=== PATIENT | male | born 1930 | race Caucasian/White ===

== ENCOUNTER 2016-07-12 14:42 | Inpatient (IN) | payer OTHER ==
--- NOTE | ~2016-07-12 | CN ---
Consultation Report [facility] [address] [place]. [address] NAME: ANITHA GARAY : 30 STATUS : ADM IN PAT#: [id number] AGE: 85 ADM/REG DATE : 07/12/16 MR#: [id number] REPORT SERV DATE: 07/13/16 DICTATED BY: JULIAN HELLER DATE: 07/13/16 REPORT STATUS : Draft TRANSCRIBED BY: MODL DATE: 07/13/16 CONSULTATION DATE OF CONSULTATION: HISTORY OF PRESENT ILLNESS: An 85-year-old white male admitted to the hospital yesterday because of shortness of breath. The patient has known diagnosis of COPD, on oxygen 2 L/minute pretty much all the time. Also, has comorbid issues of obstructive sleep apnea and history of radical neck surgery for laryngeal cancer, but he has been in remission for many years. He has been short of breath for several days and had productive cough for almost a week. Went to outside facility and found to be tachycardic and tachypneic with borderline low O2 saturation on room air and sent here for further evaluation. Currently being treated for COPD exacerbation with doxycycline and IV steroids. Had to be put on BiPAP for a while, but he is much better this morning on nasal cannula. The patient has never been seen by any one of us in the office. The patient feels much better and actually would like to go home. Outpatient regimen for his inhalers includes Proventil, Symbicort 160/4.5, and ipratropium. The patient is a former smoker of around 40 years as much as one pack per day. He quit a long time ago. REVIEW OF SYSTEMS: No fevers, chills, or sweats. No nausea, vomiting, abdominal pain, or diarrhea. No leg swelling. No seizure or syncope. 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 Ribera, dyslipidemia, depression, hernia repair. ALLERGIES: SULFA. HOME MEDICATIONS: Reviewed. FAMILY HISTORY: Hypertension. SOCIAL HISTORY: Ex smoker. Former drinker. No illicit drugs. PHYSICAL EXAMINATION: VITAL SIGNS: Per nursing flow sheet. GENERAL: No acute distress. Alert. Answers full sentences without shortness of breath. ENT: Normocephalic and atraumatic. The patient with dentures. Throat clear. NECK: Trachea midline. No lymph nodes. HEART: Regular rate and rhythm. No murmurs. LUNGS: Diminished bilaterally. No wheezes. No accessory muscle use. GI: Soft, nontender, nondistended. EXTREMITIES: No edema, cyanosis, or clubbing. Consultation Report [facility] [address] [place]. [address] NAME: AINTHA GARAY : 30 STATUS : ADM IN [facility]#: [id number] AGE: 85 ADM/REG DATE : 07/12/16 MR#: [id number] REPORT SERV DATE: 07/13/16 DICTATED BY: JULIAN HELLER DATE: 07/13/16 REPORT STATUS : Draft TRANSCRIBED BY: JARRETT DATE: 07/13/16 LABORATORY DATA: Reviewed. Chest x-ray, unremarkable. ASSESSMENT AND PLAN: 1. Chronic obstructive pulmonary disease exacerbation. 2. Obstructive sleep apnea. 3. Chronic oxygen dependency. The patient is currently on doxycycline, which is reasonable. We will switch the patient from Solu-Medrol to oral prednisone. Add Spiriva. Change DuoNeb over to just albuterol alone. Check alpha-1 antitrypsin, both level and genotype. We will continue to follow. CEP/JARRETT Julian Heller DO / [id number] CC: John Hui M.D.
--- NOTE | ~2016-07-12 | DS ---
Discharge Summary [facility] [address] [place]. [address] NAME: ANITHA GARAY : 30 STATUS : DIS IN PAT#: [id number] AGE: 85 ADM/REG DATE : 07/12/16 MR#: [id number] REPORT SERV DATE: 07/13/16 DICTATED BY: TRISHA PINEDA DATE: 07/13/16 REPORT STATUS : Draft TRANSCRIBED BY: MODL DATE: 07/13/16 ADMISSION DATE: 07/12/2016 DISCHARGE DATE: PCP: SELVIN romo [place] and Dr. Maya. DISTRICT MEDICAL EXAMINER: Dr. Yanes. CONSULTING PHYSICIAN: Dr. Heller for Pulmonary. FINAL DIAGNOSES: 1. Acute on chronic hypoxic respiratory failure. 2. Chronic obstructive pulmonary disease exacerbation. 3. History of laryngeal cancer with radical neck surgery. 4. Hypertension. 5. Benign prostatic hypertrophy. 6. Obstructive sleep apnea. 7. History of cerebrovascular accident. 8. History of permanent pacemaker for bradycardia. DIAGNOSTIC EXAM: Chest x-ray showing interval placement of dual lead pacemaker device. No pneumothorax. Mild bibasilar atelectasis. HOSPITAL COURSE: Please refer to the H and P done by myself dated 07/12/2016. Briefly, this is an 85-year-old male who has obstructive sleep apnea, but does not want to use his CPAP and only uses 2 L of oxygen at night and in the day as needed. He was doing well, but has some shortness of breath for about 3-4 days and was started on some antibiotics. Today, the said that he was going to visit his [id number] and then, the patient got anxious and started having increased shortness of breath, and tachypneic. He was brought to the emergency room in [facility], was found to be in respiratory alkalosis. He was given some Lasix, nebulizers, and steroids. The patient was placed on BiPAP and sent over here. Since the patient got here, we got a repeat blood gas and it shows better findings. We kept the patient on oxygen. He refused to wear the BiPAP throughout the night and right now, the patient is breathing at 92% with a respiratory rate of 16 on room air. He wanted to get Pulmonary involved, and we got the partner of Dr. Yanes to see the patient and also believes that the patient is doing better. The patient expresses wishes to go home and has been uncooperative with the nurses, and refusing medications. Family dropped by. They said that he looks better than what he looked yesterday and back to his baseline, and it will be better for everybody if he goes home, as the patient will be noncompliant, more anxious, and things might get much worse. With this, we will be discharging the patient home with them. He will be on his same medication as he refused any changes with it. He will be on aspirin 325 mg a day, Coreg 12.5 mg twice a day, doxycycline 100 mg twice a day, Lexapro 10 mg at bedtime, gabapentin 800 mg three times a day, hydrochlorothiazide 25 mg a day, lisinopril 20 mg a day, Flomax 0.4 mg at bedtime, albuterol inhaled twice a day as needed, Symbicort 160/4.5 inhaled twice a day, Ambien 10 mg at bedtime as needed, Xanax 0.5 mg p.r.n., Atrovent inhaled p.r.n. with albuterol. The patient already has a followup with his PCP, Discharge Summary [address] [address] NAME: ANITHA GARAY : 30 STATUS : DIS IN PAT#: [id number] AGE: 85 ADM/REG DATE : 07/12/16 MR#: [id number] REPORT SERV DATE: 07/13/16 DICTATED BY: TRISHA PINEDA DATE: 07/13/16 REPORT STATUS : Draft TRANSCRIBED BY: JARRETT DATE: 07/13/[address] Maya and the [place], and Dr. Yanes scheduled at that time, 07/23/2016 and 07/24/2016. TIME SPENT: 45 minutes. GUANAKO/JARRETT Trisha Pineda M.D. / [id number] CC: Jacob Pineda M.D.
--- NOTE | ~2016-07-12 | HP ---
History And Physical [address] [place]. [address] NAME: ANITHA GARAY : 30 STATUS : ADM IN PAT#: [id number] AGE: 85 ADM/REG DATE : 07/12/16 MR#: [id number] REPORT SERV DATE: 07/12/16 DICTATED BY: TRISHA PINEDA DATE: 07/12/16 REPORT STATUS : Draft TRANSCRIBED BY: JARRETT DATE: 07/12/16 DATE OF ADMISSION: 07/12/2016 PUBLIC HEALTH DENTIST: Dr. Yanes. But the patient also says that he goes to the [facility] for his other problems. He has a PCP there too and also a urologist. This is an 85-year-old male, who comes in for shortness of breath. The patient has a history of obstructive sleep apnea, uses CPAP at night, COPD on 2 L as needed, history of radical neck surgery for laryngeal cancer which is already on remission. The patient started having some shortness of breath 3 to 4 days ago, went to the PCP and given some antibiotics. The patient did not get better and went to [facility] where he was found to be tachycardic, beating at 30 times a minute and saturating at 88% on room air. The patient was then given Solu-Medrol, nebulizers, Lasix, and placed on BiPAP. The patient was then called to us for a direct admit to [facility]. The patient had some sweats, but denies any fever or chills. He did not have any nausea and vomiting. He does have some chronic urinary problems wherein he needs to go to the bathroom as quickly as he can or else he experiences lower abdominal pain that radiates to the leg. He said that he had some little bit of diarrhea and sometimes with blood but no melena. He admits to increased cough productive of thick phlegm but no blood. No near syncopal or syncopal episode and the rest of the 14-point review of system is negative except as above. 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 He also has hypercholesterolemia, herniorrhaphy, and history of depression. ALLERGIES: HE IS ALLERGIC TO SULFA. MEDICATIONS: Include blood pressure medications; BPH medications; CPAP, nebulizers but he could not tell me the exact names. FAMILY HISTORY: There is no history of cancer or heart disease. Some high blood pressure in the family. SOCIAL HISTORY: The patient is an ex-smoker. Quit in 1996. Denies alcohol or recreational drug use. PHYSICAL EXAMINATION: GENERAL: The patient is alert and oriented x3, in mild cardiorespiratory distress. VITAL SIGNS: His vital signs include a temperature of 98.6, heart rate of 80, blood pressure of 130/60, respiratory rate of 30, and saturating at 92% on 2 L nasal cannula. NECK: He has supple neck. No JVD or carotid bruits. No lymphadenopathy. HEENT: [place] conjunctivae. Anicteric sclerae. No pharyngeal erythema. LUNGS: He has fair air entry. Some wheezing. I cannot appreciate any crackles. History And Physical [address] [address] NAME: ANITHA GARAY : 30 STATUS : ADM IN [facility]#: [id number] AGE: 85 ADM/REG DATE : 07/12/16 MR#: [id number] REPORT SERV DATE: 07/12/16 DICTATED BY: TRISHA PINEDA DATE: 07/12/16 REPORT STATUS : Draft TRANSCRIBED BY: JARRETT DATE: 07/12/16 HEART: There is regular rate and rhythm. No murmurs appreciated. ABDOMEN: Positive bowel sounds. Soft. There is mild tenderness in the left lower quadrant area. No rebound, guarding, or masses. EXTREMITIES: Fair pulses. No edema. NEUROLOGIC: Neuro exam is nonlocalizing. LABORATORIES: From [facility] reveals a white count of 12.1, H and H of 13.7 and 41.7, and platelets of 206. Sodium of 139, potassium of 4.4, chloride of 99, CO2 of 25, glucose of 109, and BUN and creatinine of 16 and 0.96. The rest of the chemistry is within acceptable limits, pH there is 7.65/22/72/24 and 97% saturation. BNP of 211. INR of 0.9. Troponin is negative. Chest x-ray shows minimal basilar atelectasis, otherwise, no active pulmonary disease. ASSESSMENT: 1. Acute on chronic hypoxic respiratory failure. 2. Chronic obstructive pulmonary disease exacerbation. 3. History of laryngeal cancer with radical neck surgery in the past. 4. Hypertension. 5. BPH. 6. Obstructive sleep apnea. 7. History of CVA. 8. History of permanent pacemaker for bradycardia. PLAN: The patient was in [place] with respiratory failure and placed on BiPAP. He was given Solu-Medrol nebulization and Lasix and transferred here. The patient feels better now compared to when he first went to the hospital. We will check another ABG, continue the steroids and nebulizer, and continue his empiric antibiotics for now. We will need to get his medication list and place the patient on it. We will ask the family to bring his CPAP. Check an EKG. Repeat a chest x-ray tomorrow. I will get pulmonary consultation as the patient kept on asking that he wants to see Dr. Yanes. This has been explained to him and discussed it with his son and daughter too and they agreed and understood the plan. GUANAKO/JARRETT Trisha Pineda M.D. / [id number] CC: Jacob Pineda M.D.
[~2016-07-12 14:42] MED LIST: ASA5GR PO; ATROVENT INH; COREG25 PO; HYDROCHLOROT12.5 MG PO; PROVHFA INH
[2016-07-12 15:14] LABS: ALLENS TEST Neg; BE (BASE EXCESS) 3.5 MEQ/L (0 +/- 2.5); CARBOXYHEMOGLOBIN 0.6 % (0-3); DEVICE NC; HCO3 (ACTUAL BICARBONATE) 26.6 MEQ/L (23-27); HEMOBLOGIN CONTENT 14.4 G/DL (14-18); INSTRUMENT SERIAL # 8083; METHEMOGLOBIN 0.1 % (0-3); O2 CONTENT 18.9 VOL% (18-24); PCO2 (CO2 TENSION) 35 MMHG (35-45); PO2 (O2 TENSION) 66 MMHG (79-93); SAMPLE Arterial; pH 7.49 (7.37-7.43)
[2016-07-12 18:02] LABS: PROCALCITONIN <0.05 ng/mL (<0.5)
[2016-07-12] MEDS ORDERED: LEXAPRO10 PO (18:26)
[2016-07-12] MEDS ORDERED: AMB10 PO (18:27)
[2016-07-12] MEDS ORDERED: X5 PO (18:27)
[2016-07-12] MEDS ORDERED: T3 PO (18:28)
[2016-07-12] MEDS ORDERED: FLOMAX4 PO (18:28)
[2016-07-12] MEDS ORDERED: HYDROCHLOROT25 MG PO (18:28)
[2016-07-12] MEDS ORDERED: ZESTRIL20 MG PO (18:29)
[2016-07-12] MEDS ORDERED: COREG12 PO (18:29)
[2016-07-12] MEDS ORDERED: [UNRECOGNIZED DRUG - OTHER] TOP (18:29)
[2016-07-12] MEDS ORDERED: MONODOX100 MG PO (18:30)
[2016-07-12] MEDS ORDERED: ASABAYER PO (18:30)
[2016-07-12] MEDS ORDERED: ALKA-SELTZER O1 EACH PO (18:30)
[2016-07-12] MEDS ORDERED: IPRATROPIUM NASAL NAS (18:31)
[2016-07-12] MEDS ORDERED: PROVHFA INH (18:32)
[2016-07-12] MEDS ORDERED: ATROVENTUD INH (18:32)
[2016-07-12] MEDS ORDERED: SYMBICORT 160/41 INH INH (18:32)
[2016-07-12] MEDS ORDERED: NEUR800 PO (18:32)
[2016-07-12] MEDS ORDERED: ALBUTEROL5 INH (18:33)
[2016-07-12 19:01] LABS: ASCORBIC ACID (UR NOT ORDER) NEG (NEG); BILIRUBIN, URINE NEGATIVE (NEG); KETONE, URINE NEGATIVE (NEG); LEUKOCYTE ESTERASE(NOT OR NEG (NEG); WBC (NOT ORDERED) (RFLEX) 1 (0-5)
[2016-07-12 19:28] LABS: PHOSPHORUS, SERUM 1.9 MG/DL (2.5-4.5)
[2016-07-13 05:14] LABS: BASOPHILS 0 %; EOSINOPHILS 0 %; HEMOGLOBIN 13.6 g/dL (13.6-17.8); IMMATURE GRANULOCYTES 0.4 %; IMMATURE GRANULOCYTES ABSOLUTE 0.06 10/3/uL (0.0-0.11); LYMPHOCYTES 7.4 %; LYMPHOCYTES ABSOLUTE 1.09 10/3/uL (0.67-4.30); MEAN CORPUS HGB CONC 34.3 g/dL (32.0-36.0); MEAN CORPUSCULAR HEMOGLOB 31.8 pg (26.0-34.0); MEAN CORPUSCULAR VOLUME 92.8 fL (80-100); MEAN PLATELET VOLUME 11.6 fL (9.2-13.0); MONOCYTES 2.9 %; MONOCYTES ABSOLUTE 0.43 10/3/uL (0.21-1.20); NEUTROPHILS 89.3 %; NEUTROPHILS ABSOLUTE 13.13 10/3/uL (2.02-8.40); PLATELET COUNT 228 10/3/uL (150-400); RBC DISTRIBUTION WIDTH 13.6 % (12.0-16.0); RED CELL COUNT 4.28 10/6/uL (4.7-6.1); WHITE BLOOD CELLS 14.7 10/3/uL (4.5-10.5)
[2016-07-13 05:17] LABS: HEMATOCRIT 39.7 % (40.0-51.0)
[2016-07-13 05:18] LABS: MANUAL DIFF NO %
[2016-07-13 05:23] LABS: CALCIUM, SERUM 8.6 MG/DL (8.5-10.4); CHLORIDE, SERUM 97 MMOL/L (96-112); CO2 (CARBON DIOXIDE) 30 MMOL/L (24-34); CREATININE 1.45 MG/DL (0.70-1.30); GFR AFRICAN AMERICAN 51 ML/MIN (>=60); GFR NON AFRICAN AMERICAN 44 ML/MIN (>=60); SODIUM, SERUM 139 MMOL/L (135-148)
[2016-07-13 05:28] LABS: BUN (BLOOD UREA NITROGEN) 28 MG/DL (6-23); GLUCOSE, SERUM 174 MG/DL (60-99); POTASSIUM, SERUM 3.1 MMOL/L (3.5-5.3)
[2016-07-13 08:10] LABS: PHOSPHORUS, SERUM 3.2 MG/DL (2.5-4.5)
== END 2016-07-13 12:08 | disposition home or self-care (01) | DRG 189 ==
LOC: IMCU 14:42
PROVIDERS: Internal Medicine
DX: J96.21 Acute and chronic respiratory failure with hypoxia (principal); J44.1 Chronic obstructive pulmonary disease with (acute) exacerbation; G47.33 Obstructive sleep apnea (adult) (pediatric); I10 Essential (primary) hypertension; N40.0 Benign prostatic hyperplasia without lower urinary tract symptoms; Z86.73 Personal history of transient ischemic attack (TIA), and cerebral infarction without residual deficits
CPT/HCPCS: 36600; 71010; 80048; 81001; 82103; 82805; 83735; 84100; 84145; 85025; 87070; 87205; 87641; 93005; 94640; 94660; A9270-GY; J2405; J2920